=== PATIENT | female | born 1945 | race Caucasian/White ===

== ENCOUNTER → 2018-04-07 | Outpatient (CLI) | payer MEDICARE ==
[~2018-04-07] MED LIST: ALBU2.5V36 INH; ARFO15VI IH; ASPI-1471 PO; BUDE0.5A6 IH; CITA-145 PO; IPRA0.2S8 IH; LISI-362 PO; MIRT45TA8 PO; MONT10TA PO; NAPR220C12 PO; RANI-366 PO
[2018-04-07 14:59] LABS: PLATELET COUNT, AUTOMATED 429 K/uL (150-450)
[2018-04-07 15:24] LABS: LDL CHOLESTEROL 135 mg/dl
--- NOTE | 2018-04-07 16:08 | RADIOLOGY IMAGING REPORT ---
FACILITY: [facility] - [place] PATIENT NAME: Kerline Bustamante : 1945 MR: [id number] V: [id number] EXAM DATE: ORDERING PHYSICIAN: BIPIN CRUZ TECHNOLOGIST: Location: [facility] - [place] Patient: Kerline Bustamante : 1945 Visit/Account:[id number] Date of Sevice: 04/07/2018 CHEST PA AND LAT HISTORY: Left shoulder pain. Known COPD. No known injury. COMPARISON: None FINDINGS: Cardiomediastinal contours: The heart size is normal. Lungs and pleura: Line of the diaphragms and an increase in AP diameter are consistent with the patie nt's known COPD. Prominence the central pulmonary vessels suggest findings of chronic pulmonary hype rtension. There is no acute infiltrate. Bones/soft tissues: There are discogenic degenerative changes throughout the thoracic spine. IMPRESSION: 1. 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 2. No findings of an infiltrate. Report Dictated By: Bernardino Reynaga MD at 04/07/2018 4:02 PM Report E-Signed By: Bernardino Reynaga MD at 04/07/2018 4:04 PM WSN:MARY
--- NOTE | 2018-04-07 16:19 | RADIOLOGY IMAGING REPORT ---
FACILITY: [facility] - [place] PATIENT NAME: Kerline Bustamante : 1945 MR: [id number] V: [id number] EXAM DATE: ORDERING PHYSICIAN: BIPIN CRUZ TECHNOLOGIST: Location: [facility] - [place] Patient: Kerline Bustamante : 1945 Visit/Account:[id number] Date of Sevice: 04/07/2018 Exam type: SHOULDER MIN 2 VIEWS LEFT History: left shoilder pain, no known injury Comparison: None. Findings: Three views of the left shoulder demonstrates no evidence of acute fracture dislocation or significan t arthritic change. No lytic or blastic bone lesion seen IMPRESSION: 1 No acute osteoarticular abnormality the left shoulder seen Report Dictated By: Yina Kulkarni MD at 04/07/2018 4:12 PM Report E-Signed By: Yina Kulkarni MD at 04/07/2018 4:15 PM WSN:[email or web address]
== END ==
LOC: LAB 14:32
PROVIDERS: ATTEND Internal Medicine
DX: J44.9 Chronic obstructive pulmonary disease, unspecified (principal); E78.5 Hyperlipidemia, unspecified; K21.9 Gastro-esophageal reflux disease without esophagitis; M25.512 Pain in left shoulder; Z86.19 Personal history of other infectious and parasitic diseases; I10 Essential (primary) hypertension
CPT/HCPCS: 36415; 71046; 81001; 82040; 82247; 82310; 82374; 82435; 82465; 82565; 82947; 83718; 84075; 84132; 84155; 84295; 84443; 84450; 84460; 84478; 84520; 85025

== ENCOUNTER → 2018-04-13 | Outpatient (CLI) | payer MEDICARE ==
[~2018-04-13] MED LIST changes: +HYDR10TA3 PO; +PRED20TA6 PO
[2018-04-13 14:36] LABS: PLATELET COUNT, AUTOMATED 357 K/uL (150-450)
== END ==
LOC: LAB 14:02
PROVIDERS: ATTEND Internal Medicine
DX: J44.9 Chronic obstructive pulmonary disease, unspecified (principal); D64.9 Anemia, unspecified; Z86.19 Personal history of other infectious and parasitic diseases
CPT/HCPCS: 82607; 82728; 82746; 83540; 83550; 85025; 87522

== ENCOUNTER → 2018-04-15 | Outpatient (CLI) | payer MEDICARE | LOC: RESP 00:26 | PROVIDERS: ATTEND Internal Medicine | DX: J98.4 Other disorders of lung (principal) | CPT/HCPCS: 94060; 94726; 94729 ==

== ENCOUNTER → 2018-07-09 | Outpatient (CLI) | payer MEDICARE ==
[~2018-07-09] MED LIST changes: +CLOB15OI16 TP; +CYAN100088 PO; +FERR325T24 PO; +TRIA15OI20 TP
[2018-07-09 13:57] LABS: PLATELET COUNT, AUTOMATED 242 K/uL (150-450)
== END ==
LOC: LAB 13:29
PROVIDERS: ATTEND Internal Medicine
DX: J44.9 Chronic obstructive pulmonary disease, unspecified (principal); E78.5 Hyperlipidemia, unspecified; I10 Essential (primary) hypertension; D64.9 Anemia, unspecified
CPT/HCPCS: 36415; 82040; 82247; 82310; 82374; 82435; 82565; 82607; 82728; 82947; 83540; 83550; 84075; 84132; 84155; 84295; 84450; 84460; 84520; 85025